=== PATIENT | female | born 1950 | race African-American/Black ===

== ENCOUNTER 2019-05-23 16:02 | Emergency (ER) | payer OTHER ==
[2019-05-23] MEDS ORDERED: HYDROCODONE/APAP 5/325 MG TAB ONE (17:03)
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
[2019-05-23 19:01] VITALS: BP 162/78; TEMP 97.9; O2SAT 100
== END 2019-05-23 17:45 | disposition home or self-care (01) ==
LOC: ER 16:02
DX: S29.012A Strain of muscle and tendon of back wall of thorax, initial encounter (principal); V43.02XA Car driver injured in collision with other type car in nontraffic accident, initial encounter; Y93.89 Activity, other specified; Y92.89 Other specified places as the place of occurrence of the external cause; E11.9 Type 2 diabetes mellitus without complications
CPT/HCPCS: 99283

== ENCOUNTER 2021-02-10 19:39 | Emergency (ER) | payer OTHER ==
--- OUTSIDE RECORDS SUMMARY | 2021-02-10 19:41 | XMS REPORT | Continuity of Care Document ---
:1950 Author Organization [facility] t Address [address] [place] [address] Care Team Providers Name Role Phone Doctor Unassigned, Name Attending Clinician Unavailable Woo GRAHAM L Attending Clinician Yesenia Dye MD Attending Clinician Problems This patient has no known problems. Allergies, Adverse Reactions, Alerts This patient has no known allergies or adverse reactions. Medications This patient has no known medications. Procedures This patient has no known procedures. Encounters Start End Encounter Admission Attending Care Care Encounter Source Date/Time Date/Time Type Type Clinicians Facility Department ID 2020-10-06 2020-10-06 Orders Doctor RANDY [id number] 00:00:00 00:00:00 Only Unassigned, TAWNY [id number] [facility] [id number] 2020-04-09 2020-04-09 Refill MEEK Berkowitz [id number] 00:00:00 00:00:00 [facility] [id number] Surgical [id number] Specialti [id number] 2020-04-04 2020-04-04 Orders Doctor RANDY [id number] 00:00:00 00:00:00 Only UnassignedTAWNY [id number] [facility] [id number] 2020-04-03 2020-04-03 Office MEEK Dye [id number] 13:49:48 15:25:43 Visit Carmel Barnard [id number] [facility] [id number] Profess [phone] [facility] [address] Results This patient has no known results.
[2021-02-10] MEDS ORDERED: ACETAMINOPHEN 500 MG TAB ONE (21:13)
[2021-02-10 21:21] LABS: Absolute Lymphocytes (CBC) 3.3 K/uL (0.7-4.9); Basophils % 0.4 % (0-1.3); Hematocrit 31.5 % (36.0-45.0); Lymphocytes % 27.8 % (15.3-44.8); RBC Red Blood Cell Count 3.53 M/uL (3.86-4.86)
[2021-02-10 21:22] LABS: Protime INR 1.06
[2021-02-10 21:42] LABS: ALT/SGPT 15 U/L (12-78); AST/SGOT 11 U/L (15-37); Albumin 3.7 g/dL (3.4-5.0); Alkaline Phosphatase 100 U/L (45-117); BUN Blood Urea Nitrogen 30 mg/dL (7-18); Bicarbonate 25 mmol/L (21-32); Bilirubin Direct < 0.1 mg/dL (0-0.2); Bilirubin Total 0.3 mg/dL (0.2-1.0); Glucose Level 123 mg/dL (74-106); Magnesium 1.9 mg/dL (1.8-2.4); Potassium 4.2 mmol/L (3.5-5.1); Protein, Total 7.9 g/dL (6.4-8.2); Sodium Level 143 mmol/L (136-145)
--- NOTE | 2021-02-10 23:08 | ER ---
Nurse's Notes [facility] Name: Yaritza Bradley Age: 70 yrs Sex: Female : 1950 Arrival Date: 02/10/2021 Time: 19:42 Bed 5 Private MD: Diagnosis: Headache;Hypertensive heart disease Presentation: 02/10 20:00 Chief complaint: Patient states: pain on back of head started this morning at 0700. ca1 Never had this pain before. BP at home 156/106. Coronavirus screen: Client denies travel out of the [place] in the last 14 days. At this time, the client does not indicate any symptoms associated with coronavirus-19. Ebola Screen: Patient negative for fever greater than or equal to 101.5 degrees Fahrenheit, and additional compatible Ebola Virus Disease symptoms Patient denies exposure to infectious person. Patient denies travel to an Ebola-affected area in the 21 days before illness onset. No symptoms or risks identified at this time. Initial Sepsis Screen: Does the patient meet any 2 criteria? No. Patient's initial sepsis screen is negative. Does the patient have a suspected source of infection? No. Patient's initial sepsis screen is negative. Risk Assessment: Do you want to hurt yourself or someone else? Patient reports no desire to harm self or others. Onset of symptoms was February 10, 2021. 20:00 Method Of Arrival: Ambulatory ca1 20:00 Acuity: RAYMUNDO 3 ca1 Triage Assessment: 21:05 Headache History: The patient has had previous headaches and this one is more severe rr5 than previous episodes. Pain: Also complains of no other associated symptoms. Historical: - Allergies: 20:06 No Known Allergies; ca1 - Home Meds: 20:06 losartan oral oral [Active]; Metformin Oral [Active]; ca1 - PMHx: 20:06 Diabetes - NIDDM; Hypertension; ca1 - PSHx: 20:06 Cholecystectomy; ca1 - Immunization history:: Client reports receiving the 2nd dose of the Covid vaccine, Client reports receiving the 1st dose of the Covid vaccine, Pneumococcal vaccine is up to date, Flu vaccine is up to date. - Social history:: Smoking status: Patient denies any tobacco usage or history of. Screenin:01 Abuse screen: Denies threats or abuse. Nutritional screening: No deficits noted. ea Tuberculosis screening: No symptoms or risk factors identified. Fall Risk None identified. Assessment: 21:05 General: Appears in no apparent distress. comfortable, Behavior is calm, cooperative, rr5 appropriate for age. Pain: Complains of pain in head Pain currently is 5 out of 10 on a pain scale. Quality of pain is described as aching, Pain began gradually, Is intermittent. Neuro: Level of Consciousness is awake, alert, obeys commands, Oriented to person, place, time, Reports headache. Cardiovascular: Capillary refill < 3 seconds Patient's skin is warm and dry. Respiratory: Airway is patent Respiratory effort is even, unlabored, Respiratory pattern is regular, symmetrical. GI: No signs and/or symptoms were reported involving the gastrointestinal system. : No signs and/or symptoms were reported regarding the genitourinary system. EENT: No signs and/or symptoms were reported regarding the EENT system. Derm: Skin is intact, is healthy with good turgor, Skin temperature is warm. Musculoskeletal: Capillary refill < 3 seconds. 21:55 Reassessment: Patient appears in no apparent distress at this time. Patient is alert, rr5 oriented x 3, equal unlabored respirations, skin warm/dry/pink. awaiting for CT result. 23:16 Reassessment: Patient appears in no apparent distress at this time. Patient is alert, rr5 oriented x 3, equal unlabored respirations, skin warm/dry/pink. discharge instruction given and explained without complaints made Patient states feeling better. Patient states symptoms have improved. Vital Signs: 20:00 BP 121 / 99; Pulse 87; Resp 18 S; Temp 97.1(TE); Pulse Ox 100% on R/A; Weight 83.01 kg ca1 (R); Height 5 ft. 2 in. (157.48 cm) (R); Pain 5/10; 21:56 BP 155 / 85; Pulse 80; Resp 19; Pulse Ox 98% ; rr5 23:16 BP 144 / 71; Pulse 75; Resp 16; Pulse Ox 98% ; rr5 20:00 Body Mass Index 33.47 (83.01 kg, 157.48 cm) ca1 ED Course: 19:42 Patient arrived in ED. ag3 20:04 Triage completed. ca1 20:06 Arm band placed on right wrist. ca1 20:35 Akira Bhakta PA is PHCP. cp 20:35 Charly Keane MD is Attending Physician. cp 20:38 Alan De La Garza, RN is Primary Nurse. rr5 21:05 Inserted saline lock: 20 gauge in right antecubital area, using aseptic technique. rr5 Blood collected. 21:05 EKG done, by ED staff, reviewed by Akira ALMEIDA. rr5 21:07 Patient has correct armband on for positive identification. Bed in low position. Call ea light in reach. Side rails up X 1. 21:37 CT Head Brain wo Cont In Process Unspecified. EDMS 23:17 No provider procedures requiring assistance completed. IV discontinued, intact, rr5 bleeding controlled, No redness/swelling at site. Pressure dressing applied. Administered Medications: 21:04 Drug: Tylenol 1000 mg Route: PO; rr5 22:05 Follow up: Response: No adverse reaction rr5 21:04 Drug: NS 0.9% 250 ml Route: IV; Rate: bolus; Site: right antecubital; rr5 22:00 Follow up: Response: No adverse reaction; IV Status: Completed infusion; IV Intake: rr5 250ml Intake: 22:00 IV: 250ml; Total: 250ml. rr5 Outcome: 23:07 Discharge ordered by MD. cp 23:17 Discharged to home ambulatory. rr5 23:17 Condition: stable 23:17 Discharge instructions given to patient, Instructed on discharge instructions, follow up and referral plans. Demonstrated understanding of instructions, follow-up care. 23:17 Patient left the ED. rr5 Signatures: Dispatcher [employer] EDCT Akira Bhakta PA PA cp Antunez, Elena RN Trupti Chow ea 3 Alan De La Garza, RN RN rr5 Gisela Barfield RN RN ca1
--- NOTE | 2021-02-10 23:08 | EDPHYS ---
Physician Documentation [facility] Name: Yaritza Bradley Age: 70 yrs Sex: Female : 1950 Arrival Date: 02/10/2021 Time: 19:42 Bed 5 Private MD: ED Physician Charly Keane HPI: 02/10 20:50 This 70 yrs old Black Female presents to ER via Ambulatory with complaints of Headache. cp 20:50 The patient complains of pain to the right side of the back of head. cp 20:50 The patient describes the headache as aching. Onset: The symptoms/episode cp began/occurred this morning. 20:50 Associated signs and symptoms: Pertinent positives: elevated blood pressure, Pertinent cp negatives: altered mental status, dizziness, fever, neck stiffness, vision changes, vomiting. Severity of symptoms: in the emergency department the pain is unchanged, despite home interventions. 20:50 Headache History: Denies prior headaches. cp Historical: - Allergies: 20:06 No Known Allergies; ca1 - Home Meds: 20:06 losartan oral oral [Active]; Metformin Oral [Active]; ca1 - PMHx: 20:06 Diabetes - NIDDM; Hypertension; ca1 - PSHx: 20:06 Cholecystectomy; ca1 - Immunization history:: Client reports receiving the 2nd dose of the Covid vaccine, Client reports receiving the 1st dose of the Covid vaccine, Pneumococcal vaccine is up to date, Flu vaccine is up to date. - Social history:: Smoking status: Patient denies any tobacco usage or history of. ROS: 20:55 Neuro: Positive for headache. cp 20:55 Constitutional: Negative for body aches, chills, fever, poor PO intake. cp 20:55 Eyes: Negative for injury, pain, redness, and discharge. cp 20:55 ENT: Negative for ear pain, sore throat, difficulty swallowing, difficulty handling secretions. 20:55 Cardiovascular: Negative for chest pain, edema, palpitations. 20:55 Respiratory: Negative for cough, shortness of breath, wheezing. 20:55 Abdomen/GI: Negative for abdominal pain, nausea, vomiting, and diarrhea. 20:55 All other systems are negative. Exam: 21:00 Constitutional: The patient appears in no acute distress, alert, awake, cp non-diaphoretic, non-toxic, well developed, well nourished. 21:00 Head/Face: Normocephalic, atraumatic. cp 21:00 Eyes: Periorbital structures: appear normal, Pupils: equal, round, and reactive to light and accomodation, Extraocular movements: intact throughout, Conjunctiva: normal, no exudate, no injection, Sclera: no appreciated abnormality, Lids and lashes: appear normal, bilaterally. 21:00 ENT: External ear(s): are unremarkable, Nose: is normal, Mouth: Lips: moist, Oral mucosa: moist, Posterior pharynx: Airway: no evidence of obstruction, patent. 21:00 Neck: C-spine: vertebral tenderness, is not appreciated, crepitus, is not appreciated, ROM/movement: is normal, is supple, without pain, no range of motions limitations. 21:00 Chest/axilla: Inspection: normal. 21:00 Cardiovascular: Rate: normal, Rhythm: regular. 21:00 Respiratory: the patient does not display signs of respiratory distress, Respirations: normal, no use of accessory muscles, no retractions, labored breathing, is not present, Breath sounds: are clear throughout, no decreased breath sounds. 21:00 Abdomen/GI: Exam negative for discomfort, distension, guarding, Inspection: abdomen appears normal. 21:00 Back: pain, is absent. 21:00 Neuro: Orientation: to person, place \T\ time. Mentation: is normal, Cerebellar function: is grossly normal, Motor: moves all fours, strength is normal, Sensation: is normal. 21:10 ECG was reviewed by the Attending Physician. cp Vital Signs: 20:00 BP 121 / 99; Pulse 87; Resp 18 S; Temp 97.1(TE); Pulse Ox 100% on R/A; Weight 83.01 kg ca1 (R); Height 5 ft. 2 in. (157.48 cm) (R); Pain 5/10; 21:56 BP 155 / 85; Pulse 80; Resp 19; Pulse Ox 98% ; rr5 23:16 BP 144 / 71; Pulse 75; Resp 16; Pulse Ox 98% ; rr5 20:00 Body Mass Index 33.47 (83.01 kg, 157.48 cm) ca1 MDM: 20:35 Patient medically screened. cp 21:00 Differential diagnosis: intracerebral hemorrhage, migraine, neoplasm, subarachnoid cp bleed, subdural hematoma, tension headache. 23:05 Data reviewed: vital signs, nurses notes, lab test result(s), EKG, radiologic studies, cp CT scan. 23:05 Test interpretation: by ED physician or midlevel provider: ECG. cp 23:06 Response to treatment: the patient's symptoms have markedly improved after treatment, cp VSS. Patient reports headache markedly improved. Discussed renal function results. Patient reports she has been referred to [facility]. Will discharge to home for continued monitoring. 05 20:44 Order name: Basic Metabolic Panel; Complete Time: 21:50 cp 02/10 21:50 Interpretation: Normal except: CL 111; GLUC 123; BUN 30; CRE 1.96; GFR 31. cp 02/10 20:44 Order name: CBC with Diff; Complete Time: 21:50 cp 02/10 21:50 Interpretation: Normal except: WBC 11.90; RBC 3.53; HGB 10.7; HCT 31.5. cp 02/10 20:44 Order name: LFT's; Complete Time: 21:50 cp 02/10 22:40 Interpretation: Normal except: AST 11; GLOB 4.2; A/G 0.9. cp 02/10 20:44 Order name: Magnesium; Complete Time: 21:50 cp 02/10 20:44 Order name: PT-INR; Complete Time: 21:50 cp 02/10 21:51 Order name: Urine Microscopic Only cp 05 20:44 Order name: Cardiac monitoring; Complete Time: 21:05 cp 02/10 20:44 Order name: IV Saline Lock; Complete Time: 21:05 cp 02/10 20:44 Order name: Labs collected and sent; Complete Time: 21:05 cp 02/10 20:44 Order name: O2 Per Protocol; Complete Time: 21:05 cp 02/10 20:44 Order name: CT Head Brain wo Cont cp 05 20:44 Order name: O2 Sat Monitoring; Complete Time: 21:05 cp 02/10 21:51 Order name: Urine Dipstick-Ancillary (obtain specimen); Complete Time: 21:55 cp EC:10 Rate is 86 beats/min. Rhythm is regular. VA interval is normal. QRS interval is normal. cp QT interval is normal. Interpreted by me. Reviewed by me. Administered Medications: 21:04 Drug: Tylenol 1000 mg Route: PO; rr5 22:05 Follow up: Response: No adverse reaction rr5 21:04 Drug: NS 0.9% 250 ml Route: IV; Rate: bolus; Site: right antecubital; rr5 22:00 Follow up: Response: No adverse reaction; IV Status: Completed infusion; IV Intake: rr5 250ml Disposition: 02/11 05:06 Co-signature as Attending Physician, Charly Keane MD I agree with the assessment and [facility] plan of care. Disposition: 02/10/21 23:07 Discharged to Home. Impression: Headache, Hypertensive heart disease. - Condition is Stable. - Discharge Instructions: General Headache Without Cause, How to Take Your Blood Pressure, [id number], Form - Blood Pressure Record Sheet. - Medication Reconciliation Form, Thank You Letter, Antibiotic Education, Prescription Opioid Use form. - Follow up: Private Physician; When: 2 - 3 days; Reason: Recheck today's complaints. - Problem is new. - Symptoms have improved. Signatures: Dispatcher [employer] EDNM Akira Bhakta PA PA cp Wadley, Terrence, MD MD 4 Alan De La Garza, RN RN rr5 Gisela Barfield RN RN ca1 Corrections: (The following items were deleted from the chart) 02/10 23:17 23:07 02/10/2021 23:07 Discharged to Home. Impression: Headache; Hypertensive heart rr5 disease. Condition is Stable. Forms are Medication Reconciliation Form, Thank You Letter, Antibiotic Education, Prescription Opioid Use. Follow up: Private Physician; When: 2 - 3 days; Reason: Recheck today's complaints. Problem is new. Symptoms have improved. cp
[2021-02-11 00:46] VITALS: TEMP 97.1
[2021-02-11 00:48] VITALS: O2SAT 98
[2021-02-11 00:49] VITALS: BP 144/71
--- NOTE | 2021-02-11 11:32 | EKG ---
Test Date: 2021-02-10 Test Time: 21:00:54 [employer]: RR MEASUREMENT RESULTS: Intervals: Rate: 86 NM: 158 QRSD: 78 QT: 360 QTc: 430 [place]: P: 56 NM: 158 QRS: 13 T: -6 INTERPRETIVE STATEMENTS: Normal sinus rhythm Minimal voltage criteria for LVH, may be normal variant Borderline ECG No previous ECG available for comparison Electronically Signed On 02-11-21 11:31:03 CDT by Gary Reddy
--- NOTE | 2021-02-11 14:51 | RAD REPORT ---
EXAM DESCRIPTION: CT - Head Brain Wo Cont - 02/11/2021 6:32 am CLINICAL HISTORY: 70 years Female HEADACHE TECHNIQUE: Contiguous axial CT images obtained through the brain without IV contrast. Coronal and sa gittal reformats also provided. This CT exam was performed according to our departmental dose-optimization program, which includes on e or more of the following dose reduction techniques: automated exposure control, adjustment of the m A and/or kV according to patient size, and/or use of iterative reconstruction technique. COMPARISON: No prior exams provided for comparison. FINDINGS: There is no intracranial hemorrhage, extra-axial collection, or acute transcortical infarc tion. Scattered foci of low attenuation within the periventricular and subcortical white matter are n onspecific but compatible with chronic microvascular disease. The ventricles are normal in size and contour without mass-effect or midline shift. Osseous structures are normal. The paranasal sinuses and mastoid air cells are clear. IMPRESSION: No acute intracranial abnormalities. Electronically signed by: Raina Phipps MD 02/10/2021 9:54 PM CDT Due to temporary technical issues with the PACS/Fluency reporting system, reports are being signed by the in house radiologist without review as a courtesy to ensure prompt reporting. The interpreting r adiologist is fully responsible for the content of the report.
== END 2021-02-10 23:17 | disposition home or self-care (01) ==
LOC: ER 19:39
DX: I11.9 Hypertensive heart disease without heart failure (principal); I10 Essential (primary) hypertension; E11.9 Type 2 diabetes mellitus without complications
CPT/HCPCS: 36415; 70450; 80048; 80076; 83735; 85025; 85610; 93005; 96365; 99284

== ENCOUNTER 2021-09-16 02:23 | Emergency (ER) | payer OTHER ==
--- OUTSIDE RECORDS SUMMARY | 2021-09-16 02:27 | XMS REPORT | Continuity of Care Document ---
:1950 Author Organization [facility] t Address [address] [place] [address] Dr. Nicholson [address] [place] [address] Care Team Providers Name Role Phone PCP, DOES NOT HAVE A Primary Care Physician Unavailable Doctor Unassigned, Name Attending Clinician Unavailable Yesenia GREGORY Attending Clinician Unavailable Yesenia Berkowitz MD Attending Clinician Yesenia Gregory MD Attending Clinician Yesenia BERKOWITZ Attending Clinician Unavailable Adenike-Mbayo_A_AH Attending Clinician Unavailable Adenike-Mbayo_A_AH Admitting Clinician Unavailable Payers Payer Name Policy Type Policy Number Effective Date Expiration Date [id number] 2019 [facility] 00:[facility] 00:[facility]:00 (MEDICARE REPLACEMENT/ADVAN TAGE - HMO) Problems Condition Condition Condition Status Onset Resolution Last Treating Co mments Source Name Details Category Date Date Treatment Clinician Date No known No known Disease Unive rs active active ity of problems problems [facility] Allergies, Adverse Reactions, Alerts Allergy Allergy Status Severity Reaction(s) Onset Inactive Treating Comm ents Source Name Type Date Date Clinician NO KNOWN Drug Active Univers ALLERGIE Class ity of S [facility] Social History Social Habit Start Date Stop Date Quantity Comments Source Exposure to Not sure [facility]-CoV-2 [facility] (event) [place] Sex Assigned At [facility] Tobacco use and 2020-04-03 2020-04-03 Never used Universit y of exposure 00:00:00 00:00:00 [facility] Alcohol intake 2020-04-03 2020-04-03 Ex-drinker [facility] 00:00:00 00:00:00 (finding) [facility] Smoking Status Start Date Stop Date Source Unknown if ever smoked [facility] Never smoker [facility] Medications Ordered Filled Start Stop Current Ordering Indication Dosage Frequency Signature Comments Components Source Medication Medication Date Date Medication? Clinician (SIG) Name Name NAPOLEON 2020-0 Yes 81mg Take 81 mg Univer s ASPIRIN 7-01 by mouth. ity of ORAL 13:49: [address] NAPOLEON 2020-0 Yes 81mg Take 81 mg Univer s ASPIRIN 7-01 by mouth. ity of ORAL 13:49: [address] NAPOLEON 2020-0 Yes 81mg Take 81 mg Univer s ASPIRIN 7-01 by mouth. ity of ORAL 13:49: [address] NAPOLEON 2020-0 Yes 81mg Take 81 mg Univer s ASPIRIN 7-01 by mouth. ity of ORAL 13:49: [address] NAPOLEON 2020-0 Yes 81mg Take 81 mg Univer s ASPIRIN 7-01 by mouth. ity of ORAL 13:49: [address] NAPOLEON 2020-0 Yes 81mg Take 81 mg Univer s ASPIRIN 7-01 by mouth. ity of ORAL 13:49: [address] NAPOLEON 2020-0 Yes 81mg Take 81 mg Univer s ASPIRIN 7-01 by mouth. ity of ORAL 13:49: [address] NAPOLEON 2020-0 Yes 81mg Take 81 mg Univer s ASPIRIN 7-01 by mouth. ity of ORAL 13:49: [address] pravastatin 2020-0 Yes 40mg Take 40 mg Univers 40 mg 7-01 by mouth ity of tablet 13:47: at [place] 25 bedtime. Medical Branch fish 2019-0 Yes Take by Univers oil/borage/ 7-01 mouth. ity of flax/om3,6, 13:47: [place] 9 1 (OMEGA 25 Medical 3-6-9 Branch COMPLEX ORAL) triamterene 2020-0 Yes 1{tbl} Take 1 Un christel -hydrochlor 7-01 tablet by ity of othiazid 13:47: mouth [place] 37.5-25 mg 25 daily. Medical tablet Branch losartan 50 2020-0 Yes 50mg Take 50 mg Univers mg tablet 7-01 by mouth ity of 13:47: daily. [address] Branch Pantoprazol 2020-0 Yes 40mg Take 40 mg Univers e 40 mg 7-01 by mouth ity of delayed-rel 13:47: daily. [place] [address] Medical suspension Branch pravastatin 2020-0 Yes 40mg Take 40 mg Univers 40 mg 7-01 by mouth ity of tablet 13:47: at [place] [address] bedtime. Medical Branch fish 2020-0 Yes Take by Univers oil/borage/ 7-01 mouth. ity of flax/om3,6, 13:47: [place] 9 1 (OMEGA 25 Medical 3-6-9 Branch COMPLEX ORAL) triamterene 2020-0 Yes 1{tbl} Take 1 Un christel -hydrochlor 7-01 tablet by ity of othiazid 13:47: mouth [place] 37.5-25 mg 25 daily. Medical tablet Branch losartan 50 2020-0 Yes 50mg Take 50 mg Univers mg tablet 7-01 by mouth ity of 13:47: daily. [place] [address] Medical Branch Pantoprazol 2020-0 Yes 40mg Take 40 mg Univers e 40 mg 7-01 by mouth ity of delayed-rel 13:47: daily. [place] [address] Medical suspension Branch pravastatin 2020-0 Yes 40mg Take 40 mg Univers 40 mg 7-01 by mouth ity of tablet 13:47: at [place] [address] bedtime. Medical Branch fish 2020-0 Yes Take by Univers oil/borage/ 7-01 mouth. ity of flax/om3,6, 13:47: [place] 9 1 (OMEGA 25 Medical 3-6-9 Branch COMPLEX ORAL) triamterene 2020-0 Yes 1{tbl} Take 1 Un christel -hydrochlor 7-01 tablet by ity of othiazid 13:47: mouth [place] 37.5-25 mg 25 daily. Medical tablet Branch losartan 50 2020-0 Yes 50mg Take 50 mg Univers mg tablet 7-01 by mouth ity of 13:47: daily. [place] [address] Medical Branch Pantoprazol 2020-0 Yes 40mg Take 40 mg Univers e 40 mg 7-01 by mouth ity of delayed-rel 13:47: daily. [place] [address] Medical suspension Branch pravastatin 2020-0 Yes 40mg Take 40 mg Univers 40 mg 7-01 by mouth ity of tablet 13:47: at [place] [address] bedtime. Medical Branch fish 2020-0 Yes Take by Univers oil/borage/ 7-01 mouth. ity of flax/om3,6, 13:47: [place] 9 1 (OMEGA 25 Medical 3-6-9 Branch COMPLEX ORAL) triamterene 2020-0 Yes 1{tbl} Take 1 Un christel -hydrochlor 7-01 tablet by ity of othiazid 13:47: mouth [place] 37.5-25 mg 25 daily. Medical tablet Branch losartan 50 2020-0 Yes 50mg Take 50 mg Univers mg tablet 7-01 by mouth ity of 13:47: daily. [place] [address] Medical Branch Pantoprazol 2020-0 Yes 40mg Take 40 mg Univers e 40 mg 7-01 by mouth ity of delayed-rel 13:47: daily. [place] [address] Medical suspension Branch pravastatin 2020-0 Yes 40mg Take 40 mg Univers 40 mg 7-01 by mouth ity of tablet 13:47: at [place] 25 bedtime. Medical Branch fish 2020-0 Yes Take by Univers oil/borage/ 7-01 mouth. ity of flax/om3,6, 13:47: [place] 9 1 (OMEGA 25 Medical 3-6-9 Branch COMPLEX ORAL) triamterene 2020-0 Yes 1{tbl} Take 1 Un christel -hydrochlor 7-01 tablet by ity of othiazid 13:47: mouth [place] 37.5-25 mg 25 daily. Medical tablet Branch losartan 50 2020-0 Yes 50mg Take 50 mg Univers mg tablet 7-01 by mouth ity of 13:47: daily. [place] [address] Medical Branch Pantoprazol 2020-0 Yes 40mg Take 40 mg Univers e 40 mg 7-01 by mouth ity of delayed-rel 13:47: daily. [facility] s ease Medical suspension Branch pravastatin 2020-0 Yes 40mg Take 40 mg Univers 40 mg 7-01 by mouth ity of tablet 13:47: at [place] 25 bedtime. Medical Branch fish 2020-0 Yes Take by Univers oil/borage/ 7-01 mouth. ity of flax/om3,6, 13:47: [place] 9 1 (OMEGA 25 Medical 3-6-9 Branch COMPLEX ORAL) triamterene 2020-0 Yes 1{tbl} Take 1 Un christel -hydrochlor 7-01 tablet by ity of othiazid 13:47: mouth [place] 37.5-25 mg 25 daily. Medical tablet Branch losartan 50 2020-0 Yes 50mg Take 50 mg Univers mg tablet 7-01 by mouth ity of 13:47: daily. [place] [address] Medical Branch Pantoprazol 2020-0 Yes 40mg Take 40 mg Univers e 40 mg 7-01 by mouth ity of delayed-rel 13:47: daily. [place] [address] Medical suspension Branch pravastatin 2020-0 Yes 40mg Take 40 mg Univers 40 mg 7-01 by mouth ity of tablet 13:47: at [place] [address] bedtime. Medical Branch fish 2020-0 Yes Take by Univers oil/borage/ 7-01 mouth. ity of flax/om3,6, 13:47: [place] 9 1 (OMEGA 25 Medical 3-6-9 Branch COMPLEX ORAL) triamterene 2020-0 Yes 1{tbl} Take 1 Un christel -hydrochlor 7-01 tablet by ity of othiazid 13:47: mouth [place] 37.5-25 mg 25 daily. Medical tablet Branch losartan 50 2020-0 Yes 50mg Take 50 mg Univers mg tablet 7-01 by mouth ity of 13:47: daily. [place] [address] Medical Branch Pantoprazol 2020-0 Yes 40mg Take 40 mg Univers e 40 mg 7-01 by mouth ity of delayed-rel 13:47: daily. [place] [address] Medical suspension Branch pravastatin 2020-0 Yes 40mg Take 40 mg Univers 40 mg 7-01 by mouth ity of tablet 13:47: at [place] [address] bedtime. Medical Branch fish 2020-0 Yes Take by Univers oil/borage/ 7-01 mouth. ity of flax/om3,6, 13:47: [place] 9 1 (OMEGA 25 Medical 3-6-9 Branch COMPLEX ORAL) triamterene 2020-0 Yes 1{tbl} Take 1 Un christel -hydrochlor 7-01 tablet by ity of othiazid 13:47: mouth [place] 37.5-25 mg 25 daily. Medical tablet Branch losartan 50 2020-0 Yes 50mg Take 50 mg Univers mg tablet 7-01 by mouth ity of 13:47: daily. [place] [address] Medical [place] Pantoprazol 2020-0 Yes 40mg Take 40 mg Univers e 40 mg 7-01 by mouth ity of delayed-rel 13:47: daily. [place] [address] Medical suspension Branch methylPREDN 2020-0 Yes [id number] 84mg Take 21 Univers ISolone 6-18 tablets by ity of (MEDROL, 00:00: mouth [place] GILMA,) 4 mg 00 SEE-INSTRU Med ical tablets CTIONS. Branch follow package directions methylPREDN 2020-0 Yes [id number] 84mg Take 21 Univers ISolone 6-18 tablets by ity of (MEDROL, 00:00: mouth [place] GILMA,) 4 mg 00 SEE-INSTRU Med ical tablets CTIONS. Branch follow package directions methylPREDN 2020-0 Yes [id number] 84mg Take 21 Univers ISolone 6-18 tablets by ity of (MEDROL, 00:00: mouth [place] GILMA,) 4 mg 00 SEE-INSTRU Med ical tablets CTIONS. Branch follow package directions methylPREDN 2020-0 Yes [id number] 84mg Take 21 Univers ISolone 6-18 tablets by ity of (MEDROL, 00:00: mouth [place] GILMA,) 4 mg 00 SEE-INSTRU Med ical tablets CTIONS. Branch follow package directions methylPREDN 2020-0 Yes [id number] 84mg Take 21 Univers ISolone 6-18 tablets by ity of (MEDROL, 00:00: mouth [place] GILMA,) 4 mg 00 SEE-INSTRU Med ical tablets CTIONS. Branch follow package directions methylPREDN 2020-0 Yes [id number] 84mg Take 21 Univers ISolone 6-18 tablets by ity of (MEDROL, 00:00: mouth [place] GILMA,) 4 mg 00 SEE-INSTRU Med ical tablets CTIONS. Branch follow package directions methylPREDN 2020-0 Yes [id number] 84mg Take 21 Univers ISolone 6-18 tablets by ity of (MEDROL, 00:00: mouth [place] GILMA,) 4 mg 00 SEE-INSTRU Med ical tablets CTIONS. Branch follow package directions methylPREDN 2020-0 Yes [id number] 84mg Take 21 Univers ISolone 6-18 tablets by ity of (MEDROL, 00:00: mouth [place] GILMA,) 4 mg 00 SEE-INSTRU Med ical tablets CTIONS. Branch follow package directions methylPREDN 2020-0 Yes [id number] 84mg Take 21 Univers ISolone 6-18 tablets by ity of (MEDROL, 00:00: mouth [place] GILMA,) 4 mg 00 SEE-INSTRU Med ical tablets CTIONS. Branch follow package directions methylPREDN 2020-0 Yes [id number] 84mg Take 21 Univers ISolone 6-18 tablets by ity of (MEDROL, 00:00: mouth [place] GILMA,) 4 mg 00 SEE-INSTRU Med ical tablets CTIONS. Branch follow package directions methylPREDN 2020-0 Yes [id number] 84mg Take 21 Univers ISolone 6-18 tablets by ity of (MEDROL, 00:00: mouth [place] GILMA,) 4 mg 00 SEE-INSTRU Med ical tablets CTIONS. Branch follow package directions methylPREDN 2020-0 Yes [id number] 84mg Take 21 Univers ISolone 6-18 tablets by ity of (MEDROL, 00:00: mouth [place] GILMA,) 4 mg 00 SEE-INSTRU Med ical tablets CTIONS. Branch follow package directions Vital Signs Vital Name Observation Time Observation Value Comments Source Systolic blood 2020-04-03 19:22:00 171 mm[Hg] [facility]iver [facility]ity of [facility] Diastolic blood 2020-04-03 19:22:00 84 [facility]Hg[facility] Heart rate 2020-04-03 19:22:00 98 /min [facility] Body temperature 2020-04-03 19:11:00 36.83 Pooja [facility] Respiratory rate 2020-04-03 19:11:00 18 /min [facility] Body height 2020-04-03 19:11:00 157.5 cm [facility] Body weight 2020-04-03 19:11:00 88.633 kg [facility] BMI 2020-04-03 19:11:00 35.74 kg/m2 [facility] Systolic blood 2020-04-03 19:22:00 171 mm[Hg] Univer sity [facility] Diastolic blood 2020-04-03 19:22:00 84 mm[Hg] [facility] [place] 2020-04-03 19:22:00 98 /min [facility] Body temperature 2020-04-03 19:11:00 36.83 Pooja [facility] Respiratory rate 2020-04-03 19:11:00 18 /min [facility] Body height 2020-04-03 19:11:00 157.5 cm [facility] Body weight 2020-04-03 19:11:00 88.633 kg [facility] [place] [facility] BMI 2020-04-03 19:11:00 35.74 kg/m2 [facility] [place] [facility] Systolic blood 2020-03-20 13:03:00 132 mm[Hg] Univer sity of pressure [place] [facility] Diastolic blood 2020-03-20 13:03:00 74 mm[Hg] Unive rsity of pressure [facility] Branch Heart rate 2020-03-20 13:03:00 93 /min [facility] [place] [facility] Body temperature 2020-03-20 13:03:00 36.72 Pooja [facility] [place] [facility] Respiratory rate 2020-03-20 13:03:00 18 /min Univ ersity of [facility] Branch Body height 2020-03-20 13:03:00 157.5 cm [facility] [place] [facility] Body weight 2020-03-20 13:03:00 85.639 kg [facility] [place] [facility] BMI 2020-03-20 13:03:00 34.53 kg/m2 [facility] [place] [facility] Body weight 2020-03-07 19:43:00 83.915 kg [facility] [place] [facility] BMI 2020-03-07 19:43:00 33.84 kg/m2 [facility] [place] [facility] Systolic blood 2020-03-07 19:43:00 144 mm[Hg] Univer sity of pressure [facility] Branch Diastolic blood 2020-03-07 19:43:00 78 mm[Hg] Unive rsity of pressure [place] [facility] Respiratory rate 2020-03-07 19:43:00 18 /min Univ ersity of [facility] Branch Body height 2020-03-07 19:43:00 157.5 cm [facility] [place] [facility] Procedures Procedure Date / Time Performing Clinician Source Performed AUTHORIZATION FOR 2020-10-06 06:01:00 Doctor Unassigned, No [facility] [place] RELEASE OF PHI Name Medical Branch AUTHORIZATION FOR 2020-04-04 05:01:00 Doctor Unassigned, No [facility] [place] RELEASE OF [facility] Name Medical Branch US PELVIS COMPLETE WITH 2020-03-27 21:49:13 Carmel Gregory [facility] [place] [facility] Branch XR HIP 1 VW BILATERAL 2020-03-07 19:42:51 Harry Berkowitz [facility] [place] [facility] En[facility]ters Start End Encounter Admission Attending Care Care Encounter Source Date/Time Date/Time Type Type Clinicians Facility Department ID 2020-10-06 2020-10-06 Orders Doctor RANDY [id number] Univers 00:00:00 00:00:00 Only Unassigned, TAWNY [id number] ity of [facility] [id number] [place] as [id number] [address] 2020-10-06 2020-10-06 Orders Doctor PADILLA [id number] 00:00:00 00:00:00 Only Unassigned, TAWNY [id number] [facility] [id number] 2020-10-04 2020-10-04 Outpatient R BRI [facility] [id number] Univers 16:00:00 16:00:00 CARMEL [id number] ity of [facility] 2020-04-09 2020-04-09 [facility] [id number] [facility] 00:00:00 00:00:00 [facility] [id number] it y of Surgical [id number] [place] as Specialti [id number] [address] 2020-04-09 2020-04-09 [facility] [id number] 00:00:00 00:00:00 [facility] [id number] Surgical [id number] Specialti [id number] [address] 2020-04-04 2020-04-04 Orders Doctor PADILLA [id number] [facility] 00:00:00 00:00:00 Only Unassigned, TAWNY [id number] ity of [facility] [id number] [place] as [id number] [address] 2020-04-04 2020-04-04 Orders Doctor PADILLA [id number] 00:00:00 00:00:00 Only Unassigned, TAWNY [id number] [facility] [id number] [id number] 2020-04-03 2020-04-03 Office Adum, [facility] [id number] Univers 13:49:48 15:25:43 Visit aCrmel [place] [id number] ity [id number] [id number] Hi dical [address] 2020-04-03 2020-04-03 Office Ad, [facility] [id number] 13:49:48 15:25:43 Visit Carmel [place] [id number] [place] [id number] Professio [id number] [address] 2020-04-03 2020-04-03 Outpatient R ADUM, [facility] [id number] Univers 14:00:00 14:00:00 CARMEL [id number] ity [facility] 2020-04-03 2020-04-03 Outpatient R ADUM, [facility] [id number] Univers 14:00:00 14:00:[address] [facility] 2020-03-27 2020-03-27 Hospital Ad, [facility] [id number] Univers 15:23:00 23:59:00 Encounter Carmel [place] [id number] ity of [place] [id number] [place] [id number] [address] 2020-03-27 2020-03-27 Outpatient R ADUM, [facility] [id number] Univers 00:00:00 00:00:[address] [facility] 2020-03-27 2020-03-27 Outpatient R ADUM, [facility] [id number] Univers 00:00:00 00:00:[address] [facility] 2020-03-20 2020-03-20 Office Ad, [facility] 1.2.840.114 [id number] Univers 07:51:57 08:50:53 Visit Carmel [place] [id number] it[id number] [id number] Me dical nal [address] [facility] 2020-03-20 2020-03-20 Outpatient R BRI [facility] [id number] Univers 08:00:00 08:00:[id number] ity [facility] 2020-03-20 2020-03-20 Outpatient R BRI [facility] [id number] Univers 08:00:00 08:00:00 [facility] 2020-03-15 [facility] [id number] Univers 00:00:00 00:00:00 Harry [facility] [id number] it y of Surgical [id number] [place] as Specialti [id number] Me dical es 198 [facility] 2020-03-07 2020-03-07 [facility] [id number] Univers 14:42:51 23:59:00 [facility] 2020-03-07 [facility] [id number] Univers 14:42:00 23:59:00 Encounter [facility] [id number] ity of Surgical [id number] [place] as Specialti [id number] Me dical es 809 [facility] 2020-03-07 2020-03-07 [facility] [id number] Univers 14:40:12 14:56:28 Visit Harry [facility] [id number] it y of Surgical [id number] [place] as Specialti [id number] Me dical es 198 [facility] 2020-02-26 2020-02-26 Outpatient Adenike-Mbayo VFP VFP [id number] [facility] 08:35:00 08:35:00 _A_AH [id number] Family Practic e 2019-11-08 2019-11-08 Outpatient Adenike-Mbayo VFP VFP [id number] 07:21:00 07:21:00 _A_AH [id number] Family Practic e Results Test Description Test Test Results Result Source Time Comments Comments US PELVIS 2020-07- HISTORY: Mass in the Univ ersity of COMPLETE WITH 08 pelvis seen on pelvic [place] [facility] TRANSVAGINAL 21:52:19 x-ray. TECHNIQUE: Both Branch transabdominal and transvaginal pelvic ultrasound studieswere completed by the technologist. FINDINGS: Uterus is enlarged, measures approximately 10.7 x 5.8 x 6.5 cm inwith most of the left side of the uterus replaced by a heavily calcifieduterine fibroid. Uterine fibroid is approximately 5.3 x 4.5 cm in size.Small nabothian cysts are seen in the cervix, the largest is 5.6 mm .Endometrial echo complex is completely obscured by the calcified uterinefibroid No free fluid in the cul-de-sac. Right ovary is 2.4 x 1.4 x 1.2 cm (2.3 ml) with small follicles noted onthe surface of the right ovary. Left ovary could not be visualized. CONCLUSIONS: 1. Enlarged uterus due to heavily calcified 5.3 cm size fibroid whichobscures in the anatomy of the underlying endometrium..2. Normal right ovary. Left ovary could not be visualized. No left adnexalmass seen. [facility], Radiant Results Inft User - 03/27/2020 4:53 PM CDTHISTORY: Mass in the pelvis seen on pelvic x-ray.TECHNIQUE: Both transabdominal and transvaginal pelvic ultrasound studieswere completed by the technologist.FINDINGS: Uterus is enlarged, measures approximately 10.7 x 5.8 x 6.5 cm inwith most of the left side of the uterus replaced by a heavily calcifieduterine fibroid. Uterine fibroid is approximately 5.3 x 4.5 cm in size.Small nabothian cysts are seen in the cervix, the largest is 5.6 mm .Endometrial echo complex is completely obscured by the calcified uterinefibroid No free fluid in the cul-de-sac. Right ovary is 2.4 x 1.4 x 1.2 cm (2.3 ml) with small follicles noted onthe surface of the right ovary. Left ovary could not be visualized.CONCLUSIONS: 1. Enlarged uterus due to heavily calcified 5.3 cm size fibroid whichobscures in the anatomy of the underlying endometrium..2. Normal right ovary. Left ovary could not be visualized. No left adnexalmass seen. XR HIP 1 VW 2020-02- No fractures or Universi ty of BILATERAL 18 dis[place]Impressive [place] [facility] 20:43:53 size calcium ball buildup Branch in uterus
--- NOTE | 2021-09-16 04:13 | EDPHYS ---
Physician Documentation [facility] Name: Yaritza Bradley Age: 70 yrs Sex: Female : 1950 Arrival Date: 09/16/2021 Time: 02:30 Bed 11 Private MD: ED Physician Jatinder Garvey HPI: 09/16 04:04 This 70 yrs old Black Female presents to ER via Ambulatory with complaints of Shoulder pkl Pain - after injection. 04:04 The patient or guardian complains of Patient received injection of steroid in her right pkl shoulder for her rotator cuff earlier this morning by Karoline Forrester.. 04:07 Now complaining of worsening pain in her right shoulder. pkl Historical: - Allergies: 03:25 No Known Allergies; bb - Home Meds: 03:25 losartan Oral [Active]; pravastatin oral [Active]; aspirin 81 mg Oral chew 1 tab once bb daily [Active]; Fish Oil oral [Active]; - PMHx: 03:25 Diabetes - NIDDM; Hypertension; bb - Immunization history:: Adult Immunizations up to date, Client reports receiving the 2nd dose of the Covid vaccine, Moderna x 3. - Social history:: Smoking status: Patient denies any tobacco usage or history of. ROS: 04:07 Eyes: Negative for injury, pain, redness, and discharge, ENT: Negative for injury, pkl pain, and discharge, Neck: Negative for injury, pain, and swelling, Cardiovascular: Negative for chest pain, palpitations, and edema, Respiratory: Negative for shortness of breath, cough, wheezing, and pleuritic chest pain, Abdomen/GI: Negative for abdominal pain, nausea, vomiting, diarrhea, and constipation, Back: Negative for injury and pain, : Negative for injury, bleeding, discharge, and swelling. 04:07 MS/extremity: Positive for pain, of the right shoulder. 04:07 Skin: Negative for rash. 04:07 Neuro: Negative for altered mental status, loss of consciousness. Exam: 04:07 Head/Face: Normocephalic, atraumatic. Eyes: Pupils equal round and reactive to light, pkl extra-ocular motions intact. Lids and lashes normal. Conjunctiva and sclera are non-icteric and not injected. Cornea within normal limits. Periorbital areas with no swelling, redness, or edema. ENT: Nares patent. No nasal discharge, no septal abnormalities noted. Tympanic membranes are normal and external auditory canals are clear. Oropharynx with no redness, swelling, or masses, exudates, or evidence of obstruction, uvula midline. Mucous membranes moist. Neck: Trachea midline, no thyromegaly or masses palpated, and no cervical lymphadenopathy. Supple, full range of motion without nuchal rigidity, or vertebral point tenderness. No Meningismus. Chest/axilla: Normal chest wall appearance and motion. Nontender with no deformity. No lesions are appreciated. Cardiovascular: Regular rate and rhythm with a normal S1 and S2. No gallops, murmurs, or rubs. Normal PMI, no JVD. No pulse deficits. Respiratory: Lungs have equal breath sounds bilaterally, clear to auscultation and percussion. No rales, rhonchi or wheezes noted. No increased work of breathing, no retractions or nasal flaring. Abdomen/GI: Soft, non-tender, with normal bowel sounds. No distension or tympany. No guarding or rebound. No evidence of tenderness throughout. Back: No spinal tenderness. No costovertebral tenderness. Full range of motion. Skin: Warm, dry with normal turgor. Normal color with no rashes, no lesions, and no evidence of cellulitis. Neuro: Awake and alert, GCS 15, oriented to person, place, time, and situation. Cranial nerves II-XII grossly intact. Motor strength 5/5 in all extremities. Sensory grossly intact. Cerebellar exam normal. Normal gait. 04:07 Musculoskeletal/extremity: Extremities: grossly normal except: noted in the right shoulder: pain. Vital Signs: 03:21 BP 160 / 74; Pulse 92; Resp 18 S; Temp 98.1(O); Pulse Ox 100% on R/A; Weight 80.74 kg bb (R); Height 5 ft. 2 in. (157.48 cm) (R); Pain 7/10; 03:21 Body Mass Index 32.56 (80.74 kg, 157.48 cm) bb MDM: 03:39 Patient medically screened. pkl 04:10 Data reviewed: vital signs, nurses notes. pkl 04:13 ED course: Advised to follow up with Dr. Ramey in 1 to 2 days. Patient understood pkl instruction. 09/16 03:53 Order name: Arm-Sling; Complete Time: 04:15 pkl Administered Medications: 05:10 Drug: morphine 4 mg {Note: RASS 0.} Route: IM; Site: left deltoid; bb 05:35 Follow up: Response: No adverse reaction; RASS: Alert and Calm (0) bb 05:10 Drug: Ondansetron 4 mg Route: PO; bb 05:35 Follow up: Response: No adverse reaction bb Disposition Summary: 09/16/21 04:12 Discharge Ordered Location: Home pkl Problem: new pkl Symptoms: are unchanged pkl Condition: Stable pkl Diagnosis - Severe pain rifgt shoulder. S/P steroid injection pkl Followup: pkl - With: Bijan Ramey MD - When: Today - Reason: Re-evaluation by your physician Forms: - Medication Reconciliation Form pkl - Thank You Letter pkl - Antibiotic Education pkl - Prescription Opioid Use pkl Signatures: Jatinder Garvey MD MD pkl Yaritza Marcano, RN RN bb
--- NOTE | 2021-09-16 04:13 | ER ---
Nurse's Notes [facility] Name: Yaritza Bradley Age: 70 yrs Sex: Female : 1950 Arrival Date: 09/16/2021 Time: 02:30 Bed 11 Private MD: Diagnosis: Severe pain rifgt shoulder. S/P steroid injection Presentation: 09/16 03:21 Chief complaint: Patient states: she received a steroid injection to her right shoulder bb for pain from her torn rotator cuff but the pain has not improved now it is worse and she is unable to sleep she states "they don't want her to take pain mediation because of her kidneys. Coronavirus screen: At this time, the client does not indicate any symptoms associated with coronavirus-19. Ebola Screen: No symptoms or risks identified at this time. Initial Sepsis Screen: Does the patient meet any 2 criteria? No. Patient's initial sepsis screen is negative. Does the patient have a suspected source of infection? No. Patient's initial sepsis screen is negative. Risk Assessment: Do you want to hurt yourself or someone else? Patient reports no desire to harm self or others. Onset of symptoms was September 15, 2021. 03:21 Method Of Arrival: Ambulatory bb 03:21 Acuity: [id number] 4 bb Triage Assessment: 03:25 General: Appears in no apparent distress. uncomfortable, Behavior is calm, cooperative. bb Pain: Complains of pain in right shoulder Pain currently is 7 out of 10 on a pain scale. Neuro: Level of Consciousness is awake, alert, obeys commands, Oriented to person, place, time, situation. Cardiovascular: Capillary refill < 3 seconds Patient's skin is warm and dry. Respiratory: Respiratory effort is even, unlabored, Respiratory pattern is regular. GI: No signs and/or symptoms were reported involving the gastrointestinal system. Derm: Skin is dry, Skin is normal, Skin temperature is warm. Musculoskeletal: Circulation, motion, and sensation intact. limited range of motion to right arm from tenderness. Historical: - Allergies: 03:25 No Known Allergies; bb - Home Meds: 03:25 losartan Oral [Active]; pravastatin oral [Active]; aspirin 81 mg Oral chew 1 tab once bb daily [Active]; Fish Oil oral [Active]; - PMHx: 03:25 Diabetes - NIDDM; Hypertension; bb - Immunization history:: Adult Immunizations up to date, Client reports receiving the 2nd dose of the Covid vaccine, Moderna x 3. - Social history:: Smoking status: Patient denies any tobacco usage or history of. Screenin:28 Abuse screen: Denies threats or abuse. Nutritional screening: No deficits noted. bb Tuberculosis screening: No symptoms or risk factors identified. Fall Risk None identified. Assessment: 03:28 Reassessment: No changes from previously documented assessment. Patient is alert, bb oriented x 3, equal unlabored respirations, skin warm/dry/pink. see triage assessment. 05:33 Reassessment: Patient is alert, oriented x 3, equal unlabored respirations, skin bb warm/dry/pink. pt verbalized understanding of and agrees to plan of care discharge instructions given pt ambulated with steady gait to exit accompanied by family. Vital Signs: 03:21 BP 160 / 74; Pulse 92; Resp 18 S; Temp 98.1(O); Pulse Ox 100% on R/A; Weight 80.74 kg bb (R); Height 5 ft. 2 in. (157.48 cm) (R); Pain 7/10; 03:21 Body Mass Index 32.56 (80.74 kg, 157.48 cm) bb ED Course: 02:30 Patient arrived in ED. wm 03:25 Triage completed. bb 03:25 Arm band placed on Patient placed in an exam room, on a stretcher, on pulse oximetry. bb Family accompanied patient. 03:28 Yaritza Marcano, RN is Primary Nurse. bb 03:28 Patient has correct armband on for positive identification. Bed in low position. Call bb light in reach. Adult w/ patient. 03:38 Jatinder Garvey MD is Attending Physician. pkl 04:11 Bijan Ramey MD is Referral Physician. pkl 05:34 No provider procedures requiring assistance completed. Patient did not have IV access bb during this emergency room visit. Administered Medications: 05:10 Drug: morphine 4 mg {Note: RASS 0.} Route: IM; Site: left deltoid; bb 05:35 Follow up: Response: No adverse reaction; RASS: Alert and Calm (0) bb 05:10 Drug: Ondansetron 4 mg Route: PO; bb 05:35 Follow up: Response: No adverse reaction bb Outcome: 04:12 Discharge ordered by . john 05:35 Discharged to home ambulatory, with family. bb 05:35 Condition: stable 05:35 Discharge instructions given to patient, Instructed on discharge instructions, follow up and referral plans. Demonstrated understanding of instructions, follow-up care. 05:35 Patient left the ED. bb Signatures: Jatinder Garvey MD MD pkl Ballard, Brenda, RN RN Gisella Gong
[2021-09-16] MEDS ORDERED: MORPHINE 4 MG/ML SYR ONE (04:57)
[2021-09-16] MEDS ORDERED: ONDANSETRON 4 MG (ODT) TAB ONE (04:57)
[2021-09-16 05:40] VITALS: BP 160/74; TEMP 98.1; O2SAT 100
== END 2021-09-16 05:35 | disposition home or self-care (01) ==
LOC: ER 02:23
DX: M25.511 Pain in right shoulder (principal); E11.9 Type 2 diabetes mellitus without complications; I10 Essential (primary) hypertension
CPT/HCPCS: 96372; 99283